=== PATIENT | female | born 1950 | race African-American/Black ===

== ENCOUNTER 2024-11-02 08:34 | Day surgery (SDC) | payer BC, OTHER ==
[2024-10-28 06:57] VITALS: BMI 36.3
[2024-11-02] MEDS ORDERED: MIDAZOLAM HCL 2 MG/2 ML SINGLE DOSE VIAL ONE ×2 (09:10→11:43)
[2024-11-02] MEDS ORDERED: BUPIVACAINE HCL/PF 0.5% (5 MG/ML) 30 ML VIAL IJ ONE (09:57)
[2024-11-02] MEDS ORDERED: BUPIVACAINE LIPOSOME/PF (EXPAREL) 266 MG/20 ML VIAL ONE (09:58)
[2024-11-02] MEDS ORDERED: VANCOMYCIN 1,000 MG VIAL (RESTRICTED TO ID ONLY) ONE (10:40)
[2024-11-02] MEDS ORDERED: oxyCODONE HCL 5 MG TABLET PO PRN (10:53)
[2024-11-02] MEDS ORDERED: BUPIVACAINE HCL/PF 0.5% (5MG/ML) 10 ML VIAL ONE (10:56)
[2024-11-02] MEDS ORDERED: TRANEXAMIC ACID 1000 MG/10 ML VIAL ONE (12:12)
[2024-11-02] MEDS ORDERED: ceFAZolin SODIUM 1 GM VIAL ONE (12:12)
[2024-11-02] MEDS ORDERED: ONDANSETRON 4 MG/2 ML VIAL ONE (12:12)
[2024-11-02] MEDS ORDERED: BUPIVICAINE 0.25%/MORPH PF/KETOROLAC - 51ML DISP.SYRINGE IA ONE (13:36)
[2024-11-02] MEDS ORDERED: ACETAMINOPHEN INJECTION 100 ML ONE (14:06)
[2024-11-02] MEDS ORDERED: MAG HYDROX/AL HYDROX/SIMETH 30 ML UNIT-DOSE CUP PO PRN (14:10)
[2024-11-02] MEDS ORDERED: KETOROLAC TROMETHAMINE 30 MG/1 ML VIAL ONE (14:24)
[2024-11-02] MEDS: KETOROLAC TROMETHAMINE 30 MG/1 ML VIAL IVPUSH SCH (14:25)
[2024-11-02] MEDS: ACETAMINOPHEN 1000 MG/100 ML BAG IVPB ONE (14:28)
[2024-11-02] MEDS: LACTATED RINGERS SOLUTION 1,000 ML IV SCH ×2 (14:59→18:51)
[2024-11-02] MEDS: ACETAMINOPHEN 500 MG TABLET (FP) PO SCH (18:47)
[2024-11-02] MEDS: CEFAZOLIN 2 GM/D5W 2 GM/50 ML ML IVPB SCH (20:07)
[2024-11-02] MEDS: GABAPENTIN 300 MG CAPSULE PO SCH (21:38)
[2024-11-02] MEDS: oxyCODONE HCL 10 MG SUSTAINED ACTING TABLET PO SCH (21:38)
[2024-11-02] MEDS: SENNOSIDES/DOCUSATE COMBO (SENNA PLUS) TABLET (UD) PO SCH (21:39)
[2024-11-03 08:02] LABS: HEMATOCRIT 32.7 % (34.1-44.9); HEMOGLOBIN 10.9 g/dL (11.2-15.7); MCHC 33.3 g/dl (32.2-35.5); MEAN CELL VOLUME 89.6 fl (79.4-94.8); MEAN PLT VOLUME 8.8 fl (9.4-12.3); PLATELET COUNT 223 x10^3/uL (182-369); RDW 14.9 % (12.4-16.6)
[2024-11-03 08:18] LABS: CALCIUM 8.4 mg/dl (8.5-10.1); POTASSIUM 3.8 mmol/L (3.5-5.1)
[2024-11-03] MEDS: oxyCODONE HCL 5 MG TABLET PO PRN ×2 (08:48→12:40)
[2024-11-03] MEDS: MULTIVITAMINS (DAILY MVI) TABLET (FP) PO SCH (11:10)
[2024-11-03] MEDS: ASPIRIN COATED 81 MG TABLET.EC PO SCH (11:10)
[2024-11-03] MEDS: VALSARTAN 160 MG TABLET PO SCH (11:10)
[2024-11-03] MEDS: ALLOPURINOL 300 MG TABLET (FP) PO SCH (11:10)
[2024-11-03] MEDS: PANTOPRAZOLE 40 MG TABLET PO SCH (11:10)
[2024-11-03] MEDS: ONDANSETRON 4 MG/2 ML VIAL IVPUSH PRN (13:00)
[2024-11-03 14:26] VITALS: BP 138/74; PULSE 72; RESP 18; TEMP 98.6
== END 2024-11-03 17:16 | disposition home or self-care (01) ==
LOC: FASUSAT 08:34 → FM/S 15:29 → FASUSAT 11-03 17:16
PROVIDERS: ATTEND Orthopaedic Surgery Sports Medicine
PROC: 8E0Y0CZ Robotic Assisted Procedure of Lower Extremity, Open Approach (ICD-10-PCS; 2024-11-02)
PROC: 0SRC0JA Replacement of Right Knee Joint with Synthetic Substitute, Uncemented, Open Approach (ICD-10-PCS; principal; 2024-11-02 12:11)
DX: M17.11 Unilateral primary osteoarthritis, right knee (principal)
CPT/HCPCS: 20985; 27447; C1776; S2900; 36415; 73560-TC-RT-FY; 80048; 85027; 88305-TC; 88311-TC; 94760; 97010-GP; 97116-GP; 97162-GP; C1713; J0666